=== PATIENT | female | born 1965 | race Caucasian/White ===

== ENCOUNTER 2018-02-14 12:42 | Emergency (ER) | payer MEDICARE ==
[~2018-02-14] VITALS: Ht 160 cm; Wt 84.0 kg
[~2018-02-14 12:42] MED LIST: BACL-141 PO; BISA-81 PO; BISA10SU97 PR; CETI-101 PO; DICL100G16 TP; DOCU-138 PO; DULO60CA44 PO; FENT1PAT4 TP; FLUT16SP15 NS; HYDR-4005 PO; MECL-109 PO; RANI150T43 PO; TIZA4TAB4 PO; [UNRECOGNIZED DRUG - CODE] PO
[2018-02-14] MEDS ORDERED: PANTOPRAZOLE SODIUM 40 MG/VIAL IV STA (13:47)
[2018-02-14] MEDS ORDERED: SODIUM CHLORIDE 0.9% 1,000 ML IV ONE (13:47)
[2018-02-14] MEDS ORDERED: ONDANSETRON HCL 4MG/2ML VIAL IV STA (13:47)
[2018-02-14 15:07] LABS: BASOPHILS % 0.7 % (0.0-2.0); EOSINOPHILS % 2.8 % (0.0-5.0); HEMATOCRIT. 39.6 % (36.0-48.0); HEMOGLOBIN. 13.3 g/dL (12.0-16.0); MEAN CORPUSCULAR VOLUME 89.2 fL (81.0-99.0); MEAN PLATELET VOLUME 7.3 fl (7.4-10.4); MONOCYTES % 6.4 % (2.0-8.0); NEUTROPHILS % 55.1 % (40.0-76.0); PLATELET 196 x1000/uL (130-400); RED BLOOD CELL COUNT 4.45 mill/uL (4.2-5.4)
[2018-02-14 15:13] LABS: CHLORIDE 106 mEq/L (98-107); PROTHROMBIN TIME 10.3 sec (9.4-11.6)
[2018-02-14 16:53] LABS: CLARITY URINE CLEAR (CLEAR); COLOR URINE YELLOW (YELLOW); KETONES URINE NEGATIVE (NEGATIVE); LEUKOCYTE ESTERASE URINE NEGATIVE (NEGATIVE); NITRITE URINE NEGATIVE (NEGATIVE); OCCULT BLOOD URINE NEGATIVE (NEGATIVE); PROTEIN URINE NEGATIVE (NEGATIVE); UROBILINOGEN URINE 0.2 E.U./dL (0.2-1.0)
[2018-02-14] MEDS ORDERED: IOHEXOL-300 100 ML BOTTLE ONE (17:00)
[2018-02-14 18:31] VITALS: BP 142/88
== END 2018-02-14 18:31 | disposition home or self-care (01) ==
LOC: ER 12:42
DX: R10.11 Right upper quadrant pain (principal); E88.09 Other disorders of plasma-protein metabolism, not elsewhere classified; E83.51 Hypocalcemia; J98.11 Atelectasis; K76.0 Fatty (change of) liver, not elsewhere classified; R16.0 Hepatomegaly, not elsewhere classified; Z98.1 Arthrodesis status; Z91.09 Other allergy status, other than to drugs and biological substances; Z90.710 Acquired absence of both cervix and uterus
CPT/HCPCS: 36415; 71045; 74177; 76705; 80053; 81003; 83690; 85025; 85610; 86850; 86900; 86901; 93005; 96361; 96374; 96375; 99285; C9113; J2405; J7030; Q9967